=== PATIENT | male | born 1995 | race Caucasian/White ===

== ENCOUNTER 2017-05-26 19:53 | Emergency (ER) | payer OTHER ==
[2017-05-26] MEDS ORDERED: methylPREDNISolone 125 MG* 2 ML VIAL ONE (20:02)
[2017-05-26] MEDS ORDERED: diPHENhydraMINE PO* 25 MG ONE (20:02)
[2017-05-26] MEDS ORDERED: diPHENhydraMINE IV* 50 MG/ML 1 ml VIAL (BENADRYL) ONE (20:02)
[2017-05-26] MEDS ORDERED: Famotidine IV* 10 MG/ML 2 ML (20 mg) IV SLOW PU ONE (20:03)
[2017-05-26] MEDS ORDERED: methylPREDNISolone 125 MG* 2 ML VIAL IV ONE (20:03)
[2017-05-26] MEDS ORDERED: diPHENhydraMINE IV* 50 MG/ML 1 ml VIAL (BENADRYL) IV ONE (20:03)
[2017-05-26] MEDS ORDERED: NS 0.9% 1000 ML* 1,000 ML IV ONE (20:04)
--- NOTE | 2017-05-26 20:38 | ED ---
Marsha Manning Rebecca, scribed for Maximino Alvarenga MD on 05/26/17 at 2005 . Allergic Reaction/Systemic - HPI Summary HPI Summary: Pt is a 22 y/o M who presents to ED c/o throat tightening s/p tree nut ingestion. Pt reports accidentally ingesting tree nuts at approximately 1950 ( 10 minutes [employer]) with sx beginning immediately after ingestion and have been constant since onset. Sx aggravated and alleviated by nothing. 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 Confirms he has an Epi-Pen at home but he forgot to take it with him today. Previous allergic reactions characterized as throat swelling and difficulty breathing or swallowing. NKDA. - History of Current Complaint Chief Complaint: EDAllergicReaction Hx Obtained From: Patient Onset/Duration: Started minutes ago, Still Present Timing: Constant Severity Currently: None Pain Intensity: 0 Pain Scale Used: 0-10 Numeric Aggravating Factor(s): Nothing Alleviating Factor(s): Nothing Associated Signs And Symptoms: Positive: Throat Tightening - Allergies/Home Medications Allergies/Adverse Reactions: Allergies Allergy/AdvReac Type Severity Reaction Status Date / Time Tree Nuts Allergy Anaphylatic Verified 05/26/17 20:13 Shock PMH/Surg Hx/FS Hx/Imm Hx Endocrine/Hematology History: Reports: Other Endocrine/Hematological Disorders - Hx Tree Nut allergy Psychiatric History: Reports: Hx Depression Infectious Disease History: No Infectious Disease History: Denies: Traveled Outside the [place] in Last 30 Days - Family History Known Family History: Negative: Cardiac Disease, Hypertension, Diabetes - Social History Alcohol Use: None Substance Use Type: Reports: None Review of Systems Negative: Fever Positive: Other - Throat tightening All Other Systems Reviewed And Are Negative: Yes Physical Exam Triage Information Reviewed: Yes Vital Signs On Initial Exam: Initial Vitals Temp Pulse Resp BP Pulse Ox 97.8 F 87 20 111/95 99 05/26/17 19:55 05/26/17 19:55 05/26/17 19:55 05/26/17 19:55 05/26/17 19:55 Vital Signs Reviewed: Yes Appearance: Positive: Well-Appearing, No Pain Distress Skin: Positive: Warm, Other - patchy areas of urticaria Head/Face: Positive: Normal Head/Face Inspection Eyes: Positive: ROBERTO ENT: Positive: Pharynx normal. Negative: Pharyngeal erythema Neck: Positive: Supple, Nontender Respiratory/Lung Sounds: Positive: Clear to Auscultation, Breath Sounds Present Cardiovascular: Positive: RRR Abdomen Description: Positive: Nontender, Soft Bowel Sounds: Positive: Present Musculoskeletal: Positive: Strength/ROM Intact Neurological: Positive: Alert, Oriented to Person Place, Time Psychiatric: Positive: Affect/Mood Appropriate Diagnostics - Vital Signs Vital Signs Temp Pulse Resp BP Pulse Ox 05/26/17 19:55 97.8 F 87 20 111/95 99 - Laboratory Lab Statement: Any lab studies that have been ordered have been reviewed, and results considered in the medical decision making process. Re-Evaluation - Re-Evaluation First Eval Re-Evaluation Time: 20:37 Change: Improved Comment: He is feeling better after administration of medications Second Eval Re-Evaluation Time: 22:21 Change: Improved Comment: At this point, all symptoms are essentially resolved and the pt is feeling significantly better. Allergic Reaction Course/Dx - Course Assessment/Plan: Pt is a 22 y/o M who presents to ED c/o throat tightening s/p tree nut ingestion at 1950, approximately 10 minutes [employer]. Sx beginning immediately after ingestion and have been constant since onset. 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 Confirms he has an Epi-Pen at home but he forgot to take it with him today. Previous allergic reactions characterized as throat swelling and difficulty breathing or swallowing. NKDA. Pt will be D/C to home with Dx of acute allergic reaction and Rx for Prednisone. He understands and agrees. - Diagnoses Provider Diagnoses: Acute allergic reaction Discharge - Discharge Plan Condition: Stable Disposition: HOME Prescriptions: predniSONE TAB* [Deltasone TAB*] 40 mg PO DAILY #8 tab Patient Education Materials: General Allergic Reaction (ED) Referrals: [facility] [Primary Care Provider] - 3 Days The documentation as recorded by the Marsha barakat Rebecca accurately reflects the service I personally performed and the decisions made by me, Maximino Alvarenga MD.
[2017-05-26 22:49] VITALS: BP 117/68
== END 2017-05-26 22:50 | disposition home or self-care (01) ==
LOC: ED 19:53
DX: T78.1XXA Other adverse food reactions, not elsewhere classified, initial encounter (principal); X58.XXXA Exposure to other specified factors, initial encounter
CPT/HCPCS: 96374; 96375; 99283; A9270-GY; J1200; J2930

== ENCOUNTER 2019-07-06 13:37 | Emergency (ER) | payer OTHER ==
[2019-07-06 13:49] VITALS: BP 110/61
--- NOTE | 2019-07-06 14:08 | UC ---
General HPI - HPI Summary HPI Summary: 24-year-old male presents requesting refills for his buproprion and escitalopram. States he had been followed at [facility] for his prescriptions however he is no longer a student and ran out of his medications today. States he took his doses for today. Denies feelings of depression, SI, or HI at this time. - History of Current Complaint Chief Complaint: UCMedRefill Stated Complaint: MED REFILL Time Seen by Provider: 07/06/19 13:53 Hx Obtained From: Patient Pain Intensity: 0 - Allergy/Home Medications Allergies/Adverse Reactions: Allergies Allergy/AdvReac Type Severity Reaction Status Date / Time Tree Nuts Allergy Anaphylatic Verified 07/06/19 13:49 Shock Home Medications: Home Medications Loratadine 1 tab PO DAILY 07/06/19 [History Confirmed 07/06/19] PMH/Surg Hx/FS Hx/Imm Hx Psychological History: Anxiety, Depression - Surgical History Surgical History: Yes Surgery Procedure, Year, and Place: hernia - Family History Known Family History: Negative: Cardiac Disease, Hypertension, Diabetes - Social History Occupation: Unemployed Lives: Alone Alcohol Use: None Substance Use Type: None Smoking Status (MU): Never Smoked Tobacco Review of Systems All Other Systems Reviewed And Are Negative: Yes Constitutional: Positive: Negative Respiratory: Positive: Negative Cardiovascular: Positive: Negative Gastrointestinal: Positive: Negative Genitourinary: Positive: Negative Musculoskeletal: Positive: Negative Neurological: Positive: Negative Is Patient Immunocompromised?: No Physical Exam - Summary Physical Exam Summary: GENERAL APPEARANCE: Well developed, well nourished, alert and cooperative, and appears to be in no acute distress. CARDIAC: Normal S1 and S2. No S3, S4 or murmurs. Rhythm is regular. There is no peripheral edema, cyanosis or pallor. Extremities are warm and well perfused. Capillary refill is less than 2 seconds. Peripheral pulses intact. LUNGS: Clear to auscultation without rales, rhonchi, wheezing or diminished breath sounds. ABDOMEN: Positive bowel sounds. Soft, nondistended, nontender. No guarding or rebound. No masses or hepatosplenomegally. MUSKULOSKELETAL: ROM intact to all extremities. No joint erythema or tenderness. Normal muscular development. Normal gait. SKIN: Skin normal color, texture and turgor with no lesions or eruptions. PSYCHIATRIC: The patient was able to demonstrate good judgement and reason, without hallucinations, abnormal affect or abnormal behaviors during the examination. Patient is not suicidal. Triage Information Reviewed: Yes Vital Signs: Initial Vital Signs Temp 96.7 F 07/06/19 13:45 Pulse 65 07/06/19 13:45 Resp 16 07/06/19 13:45 BP 110/61 07/06/19 13:45 Pulse Ox 100 07/06/19 13:45 Vital Signs Reviewed: Yes Course/Dx - Course Course Of Treatment: 24-year-old male presents requesting refills for his buproprion and escitalopram. States he had been followed at [facility] for his prescriptions however he is no longer a student and ran out of his medications today. States he took his doses for today. Denies feelings of depression, SI, or HI at this time. Afebrile. VSS. Exam was unremarkable. I provided him with prescriptions for a 30 day supply of his medications and provided information to the [facility] and [facility] [place] physician referral service to assist him with establishing with a mental health and primary care provider. Patient is agreeable to POC. - Diagnoses Provider Diagnosis: Anxiety and depression, Encounter for medication refill Discharge ED - Sign-Out/Discharge Documenting (check all that apply): Patient Departure All imaging exams completed and their final reports reviewed: No Studies - Discharge Plan Condition: Stable Disposition: HOME Prescriptions: BuPROPion XL* [Bupropion XL*] 300 mg PO DAILY #30 tab.xl Escitalopram * [Lexapro 10 mg (NF)] 10 mg PO DAILY #30 tab Referrals: No Primary Care Phys,[facility] [Primary Care Provider] - Additional Instructions: I have provided you with a prescription for a 1 month supply of your medications without refills. You will need to establish with a primary care provider and/or mental health provider to continue to prescribe your medications. Contact [facility] to assist you with establishing with a mental health provider. They are located at [address] [place] [address]. Their phone number is [phone]. I have also provided you with information for the [facility] [place]'s physician referral service if you need further assistance with establishing with a primary care provider. - Billing Disposition and Condition Condition: STABLE Disposition: Home
== END 2019-07-06 14:23 | disposition home or self-care (01) ==
LOC: UCEAST 13:37
DX: Z76.0 Encounter for issue of repeat prescription (principal); F41.9 Anxiety disorder, unspecified; F32.9 Major depressive disorder, single episode, unspecified
CPT/HCPCS: 99212; G0463